=== PATIENT | female | born 1970 | race Caucasian/White ===

== ENCOUNTER 2019-09-10 11:33 | Emergency (ER) | payer OTHER | END 2019-09-10 12:00 | disposition home or self-care (01) | LOC: ERS 11:33 | DX: J02.9 Acute pharyngitis, unspecified (principal); Z20.828 Contact with and (suspected) exposure to other viral communicable diseases; Z79.899 Other long term (current) drug therapy | CPT/HCPCS: 87635; 99283; U0003 ==